=== PATIENT | male | born 1960 | race Caucasian/White ===

== ENCOUNTER 2021-04-20 12:39 | Emergency (ER) | payer OTHER ==
[~2021-04-20] VITALS: Ht 180.3 cm; Wt 90.7 kg
[2021-04-20 12:51] VITALS: BP_SYST 144
[2021-04-20 13:48] LABS: BASOPHILS % (AUTO) 0.5 % (0.0-2.0); EOSINOPHILS # (AUTO) 0.1 K/uL (0.0-0.4); EOSINOPHILS % (AUTO) 1.3 % (0.0-4.0); HEMATOCRIT 41.9 % (36-54); HEMOGLOBIN 14.4 g/dL (14.0-18.0); LYMPHOCYTES # (AUTO) 1.7 K/uL (1.0-5.5); LYMPHOCYTES % (AUTO) 24.1 % (20.5-51.5); MEAN CORPUSCULAR HEMOGLOBIN 31 pg (27-31); MEAN CORPUSCULAR HGB CONC 34 % (32-36); MEAN CORPUSCULAR VOLUME 91 fL (79.0-98.0); MONOCYTES # (AUTO) 0.5 K/uL (0.0-1.0); MONOCYTES % (AUTO) 6.8 % (1.7-9.3); NEUTROPHILS # (AUTO) 4.6 K/uL (1.8-7.7); NEUTROPHILS % (AUTO) 67.3 % (40.0-70.0); PLATELET COUNT (AUTO) 221 K/uL (130-430); RED BLOOD CELL COUNT(AUTO) 4.62 MIL/uL (4.2-6.2); RED CELL DISTRIBUTION WIDTH 13.1 % (9.0-15.0); WHITE BLOOD COUNT (AUTO) 6.9 K/uL (4.8-10.8)
[2021-04-20 13:53] LABS: CALCIUM 8.7 mg/dL (8.4-11.0); CREATININE 1.02 mg/dL (0.55-1.30); POTASSIUM 3.7 mmol/L (3.5-5.1)
[2021-04-20 13:56] LABS: PROTHROMBIN TIME 9.9 SECS (9.5-12.5)
[2021-04-20 13:58] LABS: ALBUMIN 3.3 g/dL (3.4-4.8); TOTAL BILIRUBIN 1.2 mg/dL (0.0-1.0)
[2021-04-20 13:59] LABS: BILIRUBIN,URINE NEGATIVE (NEGATIVE); BLOOD, URINE NEGATIVE (NEGATIVE); CLARITY/URINE CLEAR (CLEAR); COLOR,URINE YELLOW (YELLOW); GLUCOSE,URINE NEGATIVE (NEGATIVE); KETONES,URINE NEGATIVE (NEGATIVE); LEUKOCYTE ESTERASE ,URINE NEGATIVE (NEGATIVE); NITRITE, URINE NEGATIVE (NEGATIVE); PROTEIN URINE NEGATIVE (NEGATIVE); UROBILINOGEN,URINE 0.2 (0.2-1.0)
[2021-04-20 14:09] LABS: BARBITURATE, URINE NEGATIVE (NEG <=200); BENZODIAZEPINE, URINE NEGATIVE (NEG <=150); CANNABINOID, URINE NEGATIVE (NEG <=50); COCAINE, URINE NEGATIVE (NEG <=150); METHAMPHETAMINES SCREEN,URINE NEGATIVE (NEG <=500); OPIATE, URINE NEGATIVE (NEG <=100); PHENCYCLIDINE SCREEN,URINE NEGATIVE (NEG <=25); UR TRICYCLIC ANTIDEPRESSANTS NEGATIVE (NEG <=300); URINE AMPHETAMINE NEGATIVE (NEG <=500); URINE METHADONE NEGATIVE (NEG <=200); URINE OXYCODONE SCREEN NEGATIVE (NEG <=100); URINE PROPOXYPHENE SCREEN NEGATIVE (NEG <=300)
[2021-04-20] MEDS ORDERED: BUTA-251 PO (14:50)
[2021-04-20] MEDS ORDERED: DIAZ5TAB PO (14:50)
[2021-04-20 14:58] VITALS: BP_SYST 137
== END 2021-04-20 14:58 | disposition home or self-care (01) ==
LOC: SED 12:39
DX: G44.209 Tension-type headache, unspecified, not intractable (principal); Z79.899 Other long term (current) drug therapy
CPT/HCPCS: 36415; 70450-TC; 70486-TC; 71045; 76376; 80053; 80307; 81003; 84484; 85025; 85610-TC; 85730-TC; 93005; 99285

== ENCOUNTER 2021-04-26 11:36 | Emergency (ER) | payer OTHER ==
[~2021-04-26] VITALS: Ht 180.3 cm; Wt 90.7 kg
[~2021-04-26 11:36] MED LIST: BUTA-251 PO; DIAZ5TAB PO
[2021-04-26 11:50] VITALS: BP_SYST 171
--- NOTE | 2021-04-26 11:50 | NUR ---
Patient to ER bed 1 to gown for evaluation. Side rails up.
--- NOTE | 2021-04-26 11:52 | NUR ---
Pt came into ER with complaint of migraine [id number] Addendum: 04/26/21 at 1157 by [email or web address] Pt came into ER with complaint of migraine [id number]. Pt reports dizzinness, sinus pressure and N/V XToday. Pt reports 8/10 pain denies any vision changes. Pt resting in [facility] Elevated blood pressure 171/96. AAOX4 speaking in full sentences.
--- NOTE | 2021-04-26 11:59 | NUR ---
ER at bedside examining patient.
[2021-04-26] MEDS ORDERED: PROCHLORPERAZINE EDISYLATE 10 MG/2 ML VIAL IVP ONE (12:15)
[2021-04-26] MEDS ORDERED: KETOROLAC TROMETHAMINE 30 MG VIAL IVP ONE (12:15)
--- NOTE | 2021-04-26 12:17 | NUR ---
# 20 gauge angiocath placed to RAC. Use of asceptic technique. Opsite placed over site. Blood return noted. Blood for lab drawn from site. Flushed with 10 cc of normal saline. No evidence of infiltration noted. Patient tolerated well.
[2021-04-26 12:23] LABS: BASOPHILS % (AUTO) 0.3 % (0.0-2.0); EOSINOPHILS % (AUTO) 0.2 % (0.0-4.0); HEMATOCRIT 43.7 % (36-54); HEMOGLOBIN 15.2 g/dL (14.0-18.0); LYMPHOCYTES % (AUTO) 12.2 % (20.5-51.5); MEAN CORPUSCULAR HEMOGLOBIN 32 pg (27-31); MEAN CORPUSCULAR HGB CONC 35 % (32-36); MEAN CORPUSCULAR VOLUME 91 fL (79.0-98.0); MONOCYTES # (AUTO) 0.3 K/uL (0.0-1.0); NEUTROPHILS # (AUTO) 7.1 K/uL (1.8-7.7); NEUTROPHILS % (AUTO) 83.3 % (40.0-70.0); PLATELET COUNT (AUTO) 243 K/uL (130-430); RED BLOOD CELL COUNT(AUTO) 4.83 MIL/uL (4.2-6.2); RED CELL DISTRIBUTION WIDTH 12.9 % (9.0-15.0); WHITE BLOOD COUNT (AUTO) 8.6 K/uL (4.8-10.8)
[2021-04-26 12:36] LABS: CREATININE 0.97 mg/dL (0.55-1.30); POTASSIUM 3.9 mmol/L (3.5-5.1)
[2021-04-26 12:42] LABS: ALBUMIN 3.6 g/dL (3.4-4.8); TOTAL BILIRUBIN 0.8 mg/dL (0.0-1.0)
[2021-04-26] MEDS ORDERED: ONDANSETRON HCL 4 MG/2 ML VIAL IVP ONE (13:15)
--- NOTE | 2021-04-26 13:24 | NUR ---
Pt resting in [facility]. at bedside.
--- NOTE | 2021-04-26 13:38 | NUR ---
Called radiology for update on MRI. Was told tech was on their way to knot [employer] pt.
--- NOTE | 2021-04-26 14:06 | NUR ---
Spoke to Miranda from radiology and was told she was on her way to take the pt to MRI.
[2021-04-26] MEDS ORDERED: GADOBENATE DIMEGLUMINE 529 MG/ML, 15 ML VIAL IV ONE (14:18)
--- NOTE | 2021-04-26 14:30 | NUR ---
Patient transported to radiology via Wheelchair, accompanied by Tech.
--- NOTE | 2021-04-26 15:28 | NUR ---
Pt back from MRI resting in [facility] no distress noted. Family () at bedside.
--- NOTE | 2021-04-26 16:00 | NUR ---
Patient transported to radiology via Wheelchair, accompanied by tech.
--- NOTE | 2021-04-26 16:15 | NUR ---
Pt back from CT scan.
[2021-04-26] MEDS ORDERED: hydrALAZINE HCL 20 MG/ML VIAL ONE ×2 (16:25→17:25)
--- NOTE | 2021-04-26 16:40 | NUR ---
Dr. Weaver at bedside speaking with pt.
--- NOTE | 2021-04-26 16:50 | NUR ---
Pt and family has been updated on the situation and the transfer of the pt. Consent is signed. Waiting for placement for higher level of care.
--- NOTE | 2021-04-26 16:51 | NUR ---
Pt AAOX4 speaking full sentences. Resting in gurney attached to monitors.
[2021-04-26] MEDS ORDERED: hydrALAZINE HCL 20 MG/ML VIAL IVP ONE ×4 (17:00→17:30)
--- NOTE | 2021-04-26 17:01 | NUR ---
kapil collected and sent to lab.
--- NOTE | 2021-04-26 17:04 | NUR ---
[facility] accepted the pt. Dr. Stewart is the accepting physician. ETA 45 min.
--- NOTE | 2021-04-26 17:13 | NUR ---
# 18 gauge angiocath placed LAC. Use of asceptic technique. Opsite placed over site. Blood return noted. Blood for lab drawn from site. Flushed with 10 cc of normal saline. No evidence of infiltration noted. Patient tolerated well.
[2021-04-26] MEDS ORDERED: SODIUM CHLORIDE 3% *HI-ALERT* 250 ML IV ONE (17:30)
[2021-04-26] MEDS ORDERED: levETIRAcetam 1,000 MG IV BAG 100 ML IV ONE (17:30)
[2021-04-26] MEDS ORDERED: niCARdipine 25 MG in D5W 240 ML IV PRN (17:30)
[2021-04-26] MEDS ORDERED: niCARdipine 2.5 MG/ML, 10 ML VIAL (CARDENE) IV ONE (17:49)
[2021-04-26] MEDS ORDERED: levETIRAcetam 500 MG TABLET ONE (17:54)
--- NOTE | 2021-04-26 17:55 | NUR ---
Administered PO Keppra per MD order. Transfer team updated.
--- NOTE | 2021-04-26 17:59 | NUR ---
Patient to be transferred to [facility]. Is being transferred due to higher level of care. Receiving facility has accepting physician and available space. ER physician has signed transfer form. Patient or responsible democrat has agreed to transfer and signed form. Patient belongings inventoried and will be sent with patient. Copy of nursing notes, lab reports, EKG, Physicians Orders and X-rays to be sent with patient. Report called to Pérez at receiving facility. Receiving physician is Dr. Stewart. [facility] been called for transfer. ETA is now.
[2021-04-26 18:00] VITALS: BP_SYST 137
[2021-04-26] MEDS ORDERED: levETIRAcetam 500 MG TABLET PO ONE (18:00)
--- NOTE | 2021-04-26 18:11 | NUR ---
Called and spoke to Pérez from [facility] radio room to update on new medications administered and pt condition.
== END 2021-04-26 18:00 | disposition short-term general hospital (02) ==
LOC: SED 11:36
DX: I62.01 Nontraumatic acute subdural hemorrhage (principal); Z88.8 Allergy status to other drugs, medicaments and biological substances; Z79.899 Other long term (current) drug therapy; Z20.822 Contact with and (suspected) exposure to COVID-19
CPT/HCPCS: 36415; 70450; 70553; 76376; 80053; 83605; 83880; 84484; 85025; 87426; 93005; 96374; 96375; 96376; 99285; A9577; J0360; J0780; J1885; J1953 ×2; J2405; J3490